=== PATIENT | female | born 1955 | race Caucasian/White ===

== ENCOUNTER 2017-10-04 16:41 | Inpatient (IN) | payer BC ==
[~2017-10-04] VITALS: Ht 165.1 cm; Wt 65.8 kg
--- NOTE | 2017-10-04 16:45 | NUR ---
PT ATUL FROM HOME TO ER BED 11. PER REPORT, HERE FOR FAILURE TO THRIVE. C/O GENERALIZED BODY ACHES AND WEAKNESS. FAMILY AT BEDSIDE STATES POSIBLE FALL 2 DAYS AGO. BRUSING NOTED TO R HIP. GOWNED AND PLACED ON MONITOR. AWAITING MD BRYSON.
--- NOTE | 2017-10-04 17:21 | NUR ---
DR PLASENCIA AT BEDSIDE FOR EVAL.
--- NOTE | 2017-10-04 17:31 | NUR ---
FEEDER ASSOCIATE AT BEDSIDE FOR EVAL.
[2017-10-04 17:39] LABS: BASOPHILS # (AUTO) 0.5 /CMM (0.0-0.2); BASOPHILS % (AUTO) 2.7 % (0.0-2.0); EOSINOPHILS % (AUTO) 0.1 % (0.0-6.0); HEMATOCRIT 45 % (33-45); HEMOGLOBIN 15.9 g/dL (11.5-14.8); LYMPHOCYTES # (AUTO) 0.7 /CMM (0.8-4.8); LYMPHOCYTES % (AUTO) 3.9 % (20.0-44.0); MEAN CORPUSCULAR HEMOGLOBIN 29 PG (26.0-33.0); MEAN CORPUSCULAR HGB CONC 35 g/dl (31.0-36.0); MEAN CORPUSCULAR VOLUME 83 fL (82-100); MONOCYTES # (AUTO) 1.4 /CMM (0.1-1.30); MONOCYTES % (AUTO) 7.5 % (2.0-12.0); NEUTROPHILS # (AUTO) 15.5 /CMM (1.8-8.9); NEUTROPHILS % (AUTO) 85.8 % (43.0-81.0); PLATELET COUNT (AUTO) 249 /CMM (150-450); RDW COEFFICIENT OF VARIATION 14.9 (11.5-15.0); RED BLOOD CELL COUNT(AUTO) 5.43 MIL/uL (4.0-5.2); WHITE BLOOD COUNT (AUTO) 18.1 K/uL (4.3-11.0)
--- NOTE | 2017-10-04 17:46 | NUR ---
PT TO RADIOLOGY FOR HEAD CT SCAN VIA [facility].
[2017-10-04 17:49] LABS: CALCIUM, SERUM 8.9 mg/dL (8.5-10.1); CARBON DIOXIDE 27 mmol/L (21-32); CHLORIDE 98 mmol/L (98-107); CREATININE 2.6 mg/dL (0.6-1.3); GLUCOSE 121 mg/dL (74-106); POTASSIUM 2.9 mmol/L (3.5-5.1); SODIUM SERUM 139 mmol/L (136-145); UREA NITROGEN, BLOOD 61 mg/dL (7-18)
[2017-10-04 17:58] LABS: TROPONIN I 0.327 ng/mL (0.00-0.056)
[2017-10-04 18:05] LABS: ALANINE AMINOTRANSFERASE 43 U/L (12-78); ALBUMIN 3.6 g/dL (3.4-5.0); ALCOHOL, BLOOD < 3 mg/dL (0-0); ALKALINE PHOSPHATASE 61 U/L (46-116); ASPARTATE AMINOTRANSFERASE 86 U/L (15-37); BILIRUBIN,DIRECT 0.4 mg/dL (0.0-0.2); BILIRUBIN,TOTAL 1.3 mg/dL (0.2-1.0); TOTAL PROTEIN, SERUM 7.1 g/dL (6.4-8.2)
[2017-10-04 18:06] LABS: ACETAMINOPHEN < 2 ug/ml (10-30); SALICYLATE 2.3 mg/dL (2.8-20.0)
[2017-10-04 18:31] LABS: APPEARANCE,URINE Cloudy (CLEAR); BILIRUBIN,URINE LARGE (NEGATIVE); BLOOD, URINE Moderate Ery/uL (NEGATIVE); COLOR,URINE Yellow (YELLOW); KETONES,URINE 15 (NEGATIVE); LEUKOCYTE ESTERASE ,URINE Negative (NEGATIVE); NITRITE, URINE Negative (NEGATIVE); PROTEIN,URINE 100 mg/dl (NEGATIVE); UGLUCOSE Negative (NEGATIVE)
[2017-10-04 18:33] LABS: RBC,URINE 21-50 /HPF (0-2)
[2017-10-04 18:34] LABS: BACTERIA,URINE Rare /HPF (None Seen); SQUAMOUS EPITHELIAL CELL,UR Rare /HPF (None Seen); URINE AMORPHOUS URATE Many /HPF (None Seen); WBC,URINE 0-2 /HPF (0-3)
--- NOTE | 2017-10-04 18:54 | NUR ---
RADIOLOGY AT BEDSIDE FOR CHEST XRAY.
[2017-10-04] MEDS ORDERED: CEFTRIAXONE 1GM BAG (ER ONLY) 50 ML IV ONE (19:00)
[2017-10-04] MEDS ORDERED: FLUT1BLS IH (19:04)
[2017-10-04] MEDS ORDERED: ALBU18HF2 IH (19:04)
[2017-10-04] MEDS ORDERED: ENAL20TA PO (19:04)
[2017-10-04] MEDS ORDERED: SERT50TA PO (19:04)
[2017-10-04] MEDS ORDERED: ARIP10TA9 PO (19:04)
[2017-10-04] MEDS ORDERED: ZOLPIDEM TARTRATE 5 MG TABLET PO PRN (19:30)
[2017-10-04] MEDS ORDERED: MAGNESIUM HYDROXIDE 30 ML UDC PO PRN (19:30)
[2017-10-04] MEDS ORDERED: ACETAMINOPHEN 325 MG TABLET PO PRN (19:30)
[2017-10-04] MEDS ORDERED: MAG HYDROX/AL HYDROX/SIMETH 30 ML UDC PO PRN (19:30)
[2017-10-04] MEDS ORDERED: ONDANSETRON HCL/PF 4 MG/2 ML VIAL IVP PRN (19:30)
[2017-10-04] MEDS ORDERED: CEFTRIAXONE 1 G in IV D5W 50 ML IV ONE (19:30)
--- NOTE | 2017-10-04 19:58 | NUR ---
REPORT GIVEN TO GUILLE ESPOSITO. PT AWAITING TRANSFER TO FLOOR.
--- NOTE | 2017-10-04 20:07 | NUR ---
PT TO RADIOLOGY FOR CHEST CT SCAN VIA [facility].
--- NOTE | 2017-10-04 20:12 | NUR ---
DR DERIAN LAMB PER DR PLASENCIA
[2017-10-04 20:19] LABS: CREATINE KINASE MB 16.2 ng/mL (0-3.6)
--- NOTE | 2017-10-04 20:23 | NUR ---
SON MARGOTH LEFT CONTACT # [phone] DAUGHTER KIKO #[phone]
--- NOTE | 2017-10-04 20:38 | NUR ---
DR CHANG PAGED PER DR PLASENCIA
[2017-10-04] MEDS ORDERED: POTASSIUM CL. PREMIX PERIPHER. 50 ML IV ONE (21:00)
[2017-10-04] MEDS ORDERED: ASPIRIN 81 MG TAB.CHEW PO ONE (21:00)
--- NOTE | 2017-10-04 21:25 | NUR ---
REPORT GIVEN TO ED RN. PT AWAITING TRANSFER TO FLOOR.
--- NOTE | 2017-10-04 21:50 | NUR ---
ICU/RN OSTOMY THERE IS A BAG OF MEDICATION THAT WILL GO DOWN TO THE PHARMACY.
[2017-10-04] MEDS: IV NS 0.9% 1,000 ML IV PRN (21:52)
[2017-10-04 22:00] VITALS: BP 114/48
[2017-10-04] MEDS ORDERED: ALBUTEROL FS 2.5 MG/0.5 ML VIAL.NEB NEB PRN (22:00)
[2017-10-04] MEDS ORDERED: IPRATROPIUM NEB FS 0.5 MG/2.5 ML AMPUL.NEB NEB PRN (22:00)
--- NOTE | 2017-10-04 22:00 | NUR ---
ICU/CONVEYOR INSTALLER RECEIVED PT FROM ER, PLACED ON MONITOR. PT ALERT X 4, ON NON REBREATHER MASK DUE TO PNEUMOTHORAX, HYPERVENTILATION. ALSO PT IS SINUS RHYTHM 70'S. PT HAS NO BURROWS, USED BEDPAN. PT ALSO HAS A FEW SKIN ISSUES THAT ARE ADDRESSED ON FLOW SHEET. PT WAS ORT TO CALL LIGHT AND TO ROOM.
[2017-10-04 22:18] VITALS: BP 114/48
[2017-10-04] MEDS ORDERED: POTASSIUM CL. PREMIX PERIPHER. 50 ML ONE (22:19)
--- NOTE | 2017-10-04 22:30 | NUR ---
ICU/SNAPPER ON CHARGE NURSE PLACED CALL TO TUFTING CREELER MD FOR CLARIFICATION OF ORDERS POTASSIUM IS 2.9. THERE IS ORDER FOR 10MEQ OF POTASSIUM TIMES HOW MANY WAS CLARIFIED.
[2017-10-04 23:00] VITALS: BP 121/34
--- NOTE | 2017-10-04 23:15 | NUR ---
ICU/DEPARTMENTAL SECRETARY CALLED BACK SAID ONLY 1 BAG EVEN THOUGH THE POTASSIUM IS 2.9. WILL RECHECK POTASSIUM IN AM. CALL LIGHT WITHIN REACH.
[2017-10-04 23:30] VITALS: BP 108/66
--- NOTE | 2017-10-04 23:59 | NUR ---
ICU/MOTION PICTURE NARRATOR TROPONIN REPEAT WAS 0.200 FROM EARLIER DRAW WAS 0.327. WILL CONTINUE TO MONITOR PT AND LABS. PT DENIES ANY CHEST PAIN AND NO SHORTNESS OF BREATH SEEN AT THI TIME. PT APPEARS COMFORTABLE CALL LIGHT WITHIN REACH.
[2017-10-05] VITALS (25 sets, daily range): BP systolic 91–134; BP diastolic 53–77
--- NOTE | 2017-10-05 00:10 | NUR ---
ICU/ENTERTAINER & COMIC PT COMPLAINED ABOUT PAIN TO THE IV SITE WHERE THE IVPB POTASSIUM IS GOING IN AT. SITE WAS NOTED TO BE VERY RED. APPLIED ICU PACK TO THIS SITE. ALL SITES FLUSH WELL, WITH GOOD BLOOD RETURN. WILL CONTINUE TO MONITOR PT.
--- NOTE | 2017-10-05 05:10 | NUR ---
ICU/EAR NOSE THROAT PHYSICIAN PT HAD PORTABLE CHEST X-RAY DONE AWAIT RESULTS TO SEE IF PNEUMOTHORAX HAS EXPANDED OR IS GETTING BETTER. PT REMAINS ON 15 LITERS NON-REBREATHER MASK AT 15 LITERS. CALL LIGHT WITHIN REACH. NO SOB IS SEEN AT THIS TIME.
[2017-10-05 06:10] LABS: BASOPHILS % (AUTO) 0.3 % (0.0-2.0); HEMATOCRIT 40 % (33-45); HEMOGLOBIN 13.5 g/dL (11.5-14.8); LYMPHOCYTES # (AUTO) 0.6 /CMM (0.8-4.8); LYMPHOCYTES % (AUTO) 6.3 % (20.0-44.0); MEAN CORPUSCULAR HEMOGLOBIN 29 PG (26.0-33.0); MEAN CORPUSCULAR HGB CONC 34 g/dl (31.0-36.0); MEAN CORPUSCULAR VOLUME 86 fL (82-100); MONOCYTES # (AUTO) 0.8 /CMM (0.1-1.30); MONOCYTES % (AUTO) 7.8 % (2.0-12.0); NEUTROPHILS # (AUTO) 8.6 /CMM (1.8-8.9); NEUTROPHILS % (AUTO) 85.6 % (43.0-81.0); PLATELET COUNT (AUTO) 175 /CMM (150-450); RDW COEFFICIENT OF VARIATION 15.6 (11.5-15.0); RED BLOOD CELL COUNT(AUTO) 4.64 MIL/uL (4.0-5.2); WHITE BLOOD COUNT (AUTO) 10.1 K/uL (4.3-11.0)
[2017-10-05 06:25] LABS: CALCIUM, SERUM 8.6 mg/dL (8.5-10.1); CREATININE 1.5 mg/dL (0.6-1.3); MAGNESIUM 2.3 mg/dL (1.8-2.4); PHOSPHORUS 3.9 mg/dL (2.5-4.9); POTASSIUM 3.2 mmol/L (3.5-5.1)
--- NOTE | 2017-10-05 06:50 | NUR ---
ICU/SALES REPRESENTATIVE CONSULTANT BURROWS CATH WAS PLACED IN PT, PT ALSO SITTING UP EATING. SATURATION IS 100%. NO SOB SEEN. CALL LIGHT WITHIN REACH.
[2017-10-05] MEDS: IV NS 0.9% 1,000 ML IV PRN ×3 (07:15→14:52)
--- NOTE | 2017-10-05 07:30 | NUR ---
BURLAP BAG SEWER INITIAL NOTES RECEIVED PATIENT AWAKE IN BED, AOX3, ANXIETY NOTED, ON NON-REBREATHER MASK AT 15 LITERS, SATURATING WELL, NO DISTRESS NOTED, CHEST XRAY SHOWS IMPROVEMENT FROM LAST CHEST XRAY PNEUMOTHORAX IMPROVING AT THIS TIME, SR ON TELE MONITOR, FC DRAINING TO GRAVITY, IV RAC AND L HAND 20G CLEAN AND PATENT, INFUSING NS @ 100 CC/HR, BED IN LOW AND LOCKED POSITION CALL LIGHT WITHIN REACH, WILL CONTINUE TO MONITOR.
--- NOTE | 2017-10-05 08:30 | NUR ---
LICENSED LOAN OFFICER ASSISTANT NOTES PATIENT SEEN BY DR FULLER POTASSIUM REPLACEMENTS ORDERED. FOR 3.2 K LEVEL.
[2017-10-05] MEDS: POTASSIUM CHLORIDE 20 MEQ TAB.PRT.SR PO SCH ×3 (08:42→10:52)
[2017-10-05] MEDS: ASPIRIN 81 MG TAB.CHEW PO SCH (08:42)
[2017-10-05] MEDS: PANTOPRAZOLE 40 MG TABLET.DR PO SCH (08:42)
--- NOTE | 2017-10-05 10:28 | NUR ---
MARINE DESIGN ENGINEER NOTES PATIENT SEEN BY DR ROSE, PSYCH MEDICATIONS CONTINUED, GABAPENTIN ORDERED, GABAPENTIN LISTED A PATIENT ALLERGY, PER PATIENT AND SON PATIENT DOES NOT HAVE THIS ALLERGY PATIENT STATES NO KNOWN ALLERGY, PER PHARMACY OK TO TAKE OUT THE ALLERGY.
[2017-10-05] MEDS ORDERED: SERTRALINE HCL 25 MG TABLET PO SCH (10:30)
[2017-10-05] MEDS: GABAPENTIN 100 MG CAPSULE PO SCH ×2 (10:51→16:23)
[2017-10-05] MEDS: ARIPIPRAZOLE 5 MG TABLET PO SCH ×2 (10:52→16:22)
--- NOTE | 2017-10-05 11:00 | NUR ---
POLICE COMMUNICATIONS DISPATCHER NOTES PATIENT SEEN BY DR RIVERA NO CHEST TUBE NEEDED AT THIS TIME, PATIENT TO BE MONITORED AND CHEST TUBE TO BE PLACED BY DR PARIKH IF NEEDED.
[2017-10-05] MEDS ORDERED: LORAZEPAM INJ 2 MG/ML VIAL IV PRN (13:00)
[2017-10-05] MEDS: TRAMADOL HCL 50 MG TABLET PO SCH (14:29)
[2017-10-05] MEDS ORDERED: GABAPENTIN 100 MG CAPSULE PO SCH (17:00)
--- NOTE | 2017-10-05 18:53 | NUR ---
MASH TUB COOKER OPERATOR END NOTES PATIENT RESTING IN BED, SON AT BEDSIDE, NO SIGNS OF DISTRESS, WILL ENDORSE TO FAMILY ADVOCATE FOR CONTINUITY OF CARE.
[2017-10-05] MEDS: IV NS 0.9% 1,000 ML IV SCH (21:28)
[2017-10-05] MEDS: ATORVASTATIN 10 MG TABLET PO SCH (21:57)
[2017-10-05] MEDS: MIRTAZAPINE 15 MG TABLET PO SCH (21:57)
[2017-10-06] VITALS (24 sets, daily range): BP systolic 106–141; BP diastolic 50–79
[2017-10-06] MEDS: TRAMADOL HCL 50 MG TABLET PO SCH ×2 (01:15→12:45)
[2017-10-06 05:12] LABS: BASOPHILS % (AUTO) 0.2 % (0.0-2.0); EOSINOPHILS % (AUTO) 0.6 % (0.0-6.0); HEMATOCRIT 35 % (33-45); HEMOGLOBIN 11.9 g/dL (11.5-14.8); LYMPHOCYTES # (AUTO) 0.6 /CMM (0.8-4.8); MEAN CORPUSCULAR HEMOGLOBIN 29 PG (26.0-33.0); MEAN CORPUSCULAR HGB CONC 34 g/dl (31.0-36.0); MEAN CORPUSCULAR VOLUME 86 fL (82-100); MONOCYTES # (AUTO) 0.6 /CMM (0.1-1.30); MONOCYTES % (AUTO) 10.6 % (2.0-12.0); NEUTROPHILS # (AUTO) 4.4 /CMM (1.8-8.9); NEUTROPHILS % (AUTO) 78.6 % (43.0-81.0); PLATELET COUNT (AUTO) 121 /CMM (150-450); RDW COEFFICIENT OF VARIATION 15.4 (11.5-15.0); RED BLOOD CELL COUNT(AUTO) 4.08 MIL/uL (4.0-5.2); WHITE BLOOD COUNT (AUTO) 5.7 K/uL (4.3-11.0)
[2017-10-06 05:21] LABS: CREATININE 0.8 mg/dL (0.6-1.3); POTASSIUM 3.3 mmol/L (3.5-5.1)
[2017-10-06 05:25] LABS: MAGNESIUM 1.9 mg/dL (1.8-2.4); PHOSPHORUS 2.1 mg/dL (2.5-4.9)
--- NOTE | 2017-10-06 08:00 | NUR ---
AWAKE, ALERT, ON 100 % NRBM. NO DISTRESS. AFEBRILE. CXR WITH IMPROVED RIGHT LUNG PNEUMOTHORAX. FC INFUSING WELL.
[2017-10-06] MEDS: POTASSIUM CHLORIDE 20 MEQ TAB.PRT.SR PO SCH ×3 (08:09→10:25)
[2017-10-06] MEDS: GABAPENTIN 100 MG CAPSULE PO SCH ×3 (08:09→17:15)
[2017-10-06] MEDS: ARIPIPRAZOLE 5 MG TABLET PO SCH ×3 (08:09→17:15)
[2017-10-06] MEDS: ASPIRIN 81 MG TAB.CHEW PO SCH (08:10)
[2017-10-06] MEDS: PANTOPRAZOLE 40 MG TABLET.DR PO SCH (08:10)
[2017-10-06] MEDS ORDERED: SERTRALINE HCL 25 MG TABLET PO SCH (09:00)
[2017-10-06] MEDS: IV NS 0.9% 1,000 ML IV SCH (09:15)
[2017-10-06] MEDS ORDERED: IV NS 0.9% 1,000 ML IV PRN (09:27)
--- NOTE | 2017-10-06 10:00 | NUR ---
DR. PETERS FOR PULMO FF UP- KEEP PATIENT IN ICU PER MD. OOB WITH PT AT BEDSIDE-TOLERATED WELL.
[2017-10-06] MEDS ORDERED: TEMAZEPAM 15 MG CAPSULE PO PRN (11:00)
--- NOTE | 2017-10-06 12:00 | NUR ---
ON 4L N/C DURING MEALS. NO SOB. SPO>94 %.
[2017-10-06] MEDS ORDERED: K PHOS NEUTRAL 250 MG TABLET PO ONE (12:30)
[2017-10-06] MEDS: FLUTICASONE/VILANTEROL 1 EACH BLST.W.DEV IH SCH (14:34)
[2017-10-06] MEDS: DOCUSATE SODIUM 100 MG CAPSULE PO SCH (17:15)
--- NOTE | 2017-10-06 18:50 | NUR ---
NO CHANGE IN CONDITION. REMIANS ON 100% NRBM. NO SOB PRESENTED. UO IMPROVING. AFEBRILE.
--- NOTE | 2017-10-06 19:30 | NUR ---
COAT PADDER INITIAL NOTES RECEIVED PATIENT AWAKE, ALERT, AND ORIENTED. ABLE TO MAKE NEEDS KNOWN. DENIES SOB AT THIS TIME. ON [id number] VIA NON-REBREATHER. DENIES PAIN OR DISCOMFORT. SKIN WARM AND DRY TO TOUCH. WITH F/C PATENT AND INTACT, DRAINING BY GRAVITY. ON TELE MONITOR SR 81. HOB ELEVATED. SIDE RAILS UP AND LOCKED. BED KEPT AT LOWEST POSITION. CALL LIGHT KEPT WITHIN EASY REACH. FALL PRECAUTIONS OBSERVED. WILL CONTINUE TO MONITOR.
[2017-10-06] MEDS: ATORVASTATIN 10 MG TABLET PO SCH (21:04)
[2017-10-06] MEDS: MIRTAZAPINE 15 MG TABLET PO SCH (21:05)
[2017-10-07] VITALS (16 sets, daily range): BP systolic 100–158; BP diastolic 57–85
[2017-10-07] MEDS: TRAMADOL HCL 50 MG TABLET PO SCH ×2 (01:00→12:41)
--- NOTE | 2017-10-07 01:18 | NUR ---
NON-ADMIN ULTRAM, PATIENT SLEEPING COMFORTABLY. NO S/S OF PAIN OR DISCOMFORT. WILL CONTINUE TO MONITOR.
[2017-10-07] MEDS: LORAZEPAM INJ 2 MG/ML VIAL IV PRN ×3 (02:37→21:46)
--- NOTE | 2017-10-07 02:40 | NUR ---
RIGHT OF WAY CLEARER NOTES PATIENT EXPRESSED SHE'S FEELING ANXIOUS. DENIES PAIN OR DISCOMFORT. ASKED PATIENT THE CAUSE OF HER ANXIETY, STATES SHE'S SCARED ABOUT HER BILLS AND OTHER THINGS AT HOME THAT AREN'T BEING TAKEN CARE OF. PROVIDED REASSURANCE. PATIENT STILL ANXIOUS. PRN ATIVAN GIVEN ORDERED. WILL CONTINUE TO MONITOR.
[2017-10-07 05:27] LABS: BASOPHILS % (AUTO) 0.3 % (0.0-2.0); EOSINOPHILS # (AUTO) 0.1 /CMM (0.0-0.7); EOSINOPHILS % (AUTO) 1.8 % (0.0-6.0); HEMATOCRIT 36 % (33-45); HEMOGLOBIN 12.1 g/dL (11.5-14.8); LYMPHOCYTES # (AUTO) 0.6 /CMM (0.8-4.8); LYMPHOCYTES % (AUTO) 11.3 % (20.0-44.0); MEAN CORPUSCULAR HEMOGLOBIN 29 PG (26.0-33.0); MEAN CORPUSCULAR HGB CONC 34 g/dl (31.0-36.0); MEAN CORPUSCULAR VOLUME 86 fL (82-100); MONOCYTES # (AUTO) 0.4 /CMM (0.1-1.30); NEUTROPHILS # (AUTO) 4.3 /CMM (1.8-8.9); NEUTROPHILS % (AUTO) 78.6 % (43.0-81.0); PLATELET COUNT (AUTO) 118 /CMM (150-450); RDW COEFFICIENT OF VARIATION 15.5 (11.5-15.0); RED BLOOD CELL COUNT(AUTO) 4.15 MIL/uL (4.0-5.2); WHITE BLOOD COUNT (AUTO) 5.5 K/uL (4.3-11.0)
[2017-10-07 05:40] LABS: CALCIUM, SERUM 7.8 mg/dL (8.5-10.1); CREATININE 0.8 mg/dL (0.6-1.3); POTASSIUM 3.7 mmol/L (3.5-5.1)
[2017-10-07 05:43] LABS: MAGNESIUM 1.7 mg/dL (1.8-2.4); PHOSPHORUS 2.4 mg/dL (2.5-4.9)
--- NOTE | 2017-10-07 06:12 | NUR ---
COOLER TENDER CLOSING NOTES NO SIGNIFICANT CHANGES OVERNIGHT. DENIES PAIN OR DISCOMFORT. DENIES SOB. ALERT AND ORIENTED, ALL NEEDS ANTICIPATED AND MET. NO RESPIRATORY DISTRESS NOTED. ON NON-REBREATHER 15LPM. F/C PATENT AND INTACT, DRAINING BY GRAVITY. KEPT CLEAN AND DRY. TURNED AND REPOSITIONED Q2 AND PRN. SIDE RAILS UP AND LOCKED. BED KEPT AT LOWEST POSITION. CALL LIGHT KEPT WITHIN EASY REACH. WILL ENDORSE CONTINUITY OF CARE TO AM NURSE.
--- NOTE | 2017-10-07 07:54 | NUR ---
RN INITIAL NOTE; RECEIVED PATIENT AWAKE, AND ORIENTED. ABLE TO MAKE NEEDS KNOWN. DENIES SOB AT THIS TIME. ON [id number] VIA NON-REBREATHER. TELE MONITOR SHOWS SR 80. SKIN WARM AND DRY TO TOUCH. WITH F/C PATENT AND INTACT AND DRAINING AMILCAR COLORED URINE . HOB ELEVATED. SIDE RAILS UP AND LOCKED. BED AT LOWEST AND LOCKED POSITION. CALL LIGHT WITHIN EASY REACH. ON FALL PRECAUTIONS . BED ALARM ON , WILL CONTINUE TO MONITOR.
[2017-10-07] MEDS: PANTOPRAZOLE 40 MG TABLET.DR PO SCH (08:11)
[2017-10-07] MEDS ORDERED: Magnesium 1GM/D5W 100ML PREMIX PIGGYBACK IV ONE (10:00)
[2017-10-07] MEDS: FLUTICASONE/VILANTEROL 1 EACH BLST.W.DEV IH SCH (10:15)
[2017-10-07] MEDS: GABAPENTIN 100 MG CAPSULE PO SCH ×3 (10:15→17:08)
[2017-10-07] MEDS: ARIPIPRAZOLE 5 MG TABLET PO SCH ×3 (10:15→17:08)
[2017-10-07] MEDS: SERTRALINE HCL 25 MG TABLET PO SCH (10:16)
[2017-10-07] MEDS: ASPIRIN 81 MG TAB.CHEW PO SCH (10:16)
[2017-10-07] MEDS: DOCUSATE SODIUM 100 MG CAPSULE PO SCH ×2 (10:16→17:08)
--- NOTE | 2017-10-07 10:44 | NUR ---
RN NOTE; REPORT GIVEN TO DMITRIY FROM TELE METRY, PATIENT WITH NO ANY DISTRESS AT THIS TIME
--- NOTE | 2017-10-07 11:45 | NUR ---
PATIENT TRANSFERRED TO TELE FLOOR ROOM 311-1 , ALL BELONGINGS GIVEN TO THE PATIENT, PATIENT WITHOUT ANY DISTRESS , REPORT GIVEN TO CATE IZAGUIRRE .
[2017-10-07] MEDS ORDERED: K PHOS NEUTRAL 250 MG TABLET PO ONE (12:00)
--- NOTE | 2017-10-07 19:45 | NUR ---
RN OPENING NOTES RECEIVED REPORT FROM RIPFT RNDMITRIY. FOUND Pt ASLEEP, RESTING IN BED, EASILY AWAKENED. EQUAL CHEST RISE AND FALL. NO S/S OF ACUTE DISTRESS OR SOB NOTED. Pt IS A/OX3, VERBAL, ABLE TO MAKE NEEDS KNOWN. BURROWS CATHETER IN PLACE. IV ACCESS ON LWRIST #20G. SAFETY MEASURES IN PLACE. BED LOW, LOCKED, HOB ELEVATED, SIDE RAILS UP, CALL LIGHT AND BEDSIDE TABLE WITHIN REACH. WILL CONTINUE TO MONITOR Pt THROUGHOUT THE NIGHT FOR SAFETY.
--- NOTE | 2017-10-07 19:46 | NUR ---
CHANGE OF SHIFT REPORT PT RESTING COMFORTABLY IN BED. NO S/S OR C/O PAIN OR DISTRESS NOTED. SIDE RAILS UP X2, CALL LIGHT LEFT WITHIN REACH. PT KEPT CLEAN, DRY, AND COMFORTABLE. NO SIGNIFICANT CHANGES SINCE TRANSFER. REPORT GIVEN TO KEVIN RN
[2017-10-07] MEDS: ATORVASTATIN 10 MG TABLET PO SCH (21:35)
[2017-10-07] MEDS: MIRTAZAPINE 15 MG TABLET PO SCH (21:35)
[2017-10-08] MEDS: TRAMADOL HCL 50 MG TABLET PO SCH ×2 (01:00→12:23)
--- NOTE | 2017-10-08 06:30 | NUR ---
RN CLOSING NOTES NO SIGNIFICANT CHANGES IN Pt's CONDITION. Pt REMAINS IN STABLE CONDITION AT THIS TIME. NO S/S OF ACUTE DISTRESS OR SOB NOTED DURING THE NIGHT. Pt REFUSED TO BE GIVEN A BED BATH. ALL OTHER NEEDS ATTENDED TO. SAFETY MEASURES IN PLACE. WILL ENDORSE TO DAYSHIFT RN FOR Pt's DENNYS.
--- NOTE | 2017-10-08 07:30 | NUR ---
RN OPEN NOTES RECEIVED REPORT FROM FLIGHT ENGINEER MANAGER NURSE. PATIENT IS IN BED. ALERT AND ORIENTED X4. BED IN LOW POSITION, LOCKED AND TWO SIDE RAILS ARE UP. CALL LIGHT WITHIN REACH FOR SAFETY. NO S/S OF DISTRESS. WILL CONTINUE TO MONITOR AND ASSESS PATIENT
[2017-10-08 08:00] VITALS: BP 119/70
[2017-10-08] MEDS: GABAPENTIN 100 MG CAPSULE PO SCH ×3 (08:55→16:42)
[2017-10-08] MEDS: DOCUSATE SODIUM 100 MG CAPSULE PO SCH ×2 (08:55→16:42)
[2017-10-08] MEDS: ASPIRIN 81 MG TAB.CHEW PO SCH (08:55)
[2017-10-08] MEDS: SERTRALINE HCL 25 MG TABLET PO SCH (08:55)
[2017-10-08] MEDS: ARIPIPRAZOLE 5 MG TABLET PO SCH ×3 (08:56→16:42)
[2017-10-08] MEDS: FLUTICASONE/VILANTEROL 1 EACH BLST.W.DEV IH SCH (08:56)
[2017-10-08] MEDS: PANTOPRAZOLE 40 MG TABLET.DR PO SCH (08:56)
[2017-10-08 16:00] VITALS: BP 125/75
[2017-10-08] MEDS ORDERED: Magnesium 1GM/D5W 100ML PREMIX PIGGYBACK IV ONE (17:00)
--- NOTE | 2017-10-08 18:29 | NUR ---
RN CLOSING NOTES PATIENT IS IN BED. AWAKE, ALERT AND ORIENTED TO SELF, PLACE AND TIME. PERIOD OF CONFUSION NOTED. NO SIGNS AND SYMPTOMS OF DISTRESS. PENDING CASE MANAGEMENT CONSULT. BED IN LOW POSITION, LOCKED AND TWO SIDE RAILS ARE UP. CALL LIGHT WITHIN REACH FOR SAFETY. PATIENT KEPT SAFE, DRY AND CLEAN. ALL NURSING CARE ANTICIPATED AND ATTENDED FOR. WILL ENDORSE TO SILVERWARE WASHER NURSE.
--- NOTE | 2017-10-08 19:30 | NUR ---
MS RN NOTE: PATIENT RESTING IN BED, NO ACUTE DISTRESS NOTED. BREATHING EVEN AND UNLABORED, NO SOB NOTED. OXYGEN IN PLACE, VIA NC AT 2 LPM WITH O2 SAT AT 97%. IV TO RFA IN PLACE. BURROWS CATHETER IN PLACE, EMPTY AT THIS TIME. BED LOCKED AND IN LOWEST POSITION, CALL LIGHT IN REACH. WILL CONTINUE TO MONITOR.
[2017-10-08 20:00] VITALS: BP 115/66
[2017-10-08] MEDS: ATORVASTATIN 10 MG TABLET PO SCH (21:22)
[2017-10-08] MEDS: IBUPROFEN 600 MG TABLET PO PRN (21:22)
[2017-10-08] MEDS: MIRTAZAPINE 15 MG TABLET PO SCH (21:22)
--- NOTE | 2017-10-08 21:30 | NUR ---
MS RN NOTE: PATIENT COMPLAINS OF PAIN 3/10 TO BACK, MOTRIN 600MG ORAL GIVEN PER MD ORDER. WILL CONTINUE TO MONITOR.
[2017-10-09] MEDS: TRAMADOL HCL 50 MG TABLET PO SCH ×2 (00:41→13:20)
--- NOTE | 2017-10-09 06:05 | NUR ---
MS RN NOTE: PATIENT RESTING IN BED, NO ACUTE DISTRESS NOTED. BREATHING EVEN AND UNLABORED, NO SOB NOTED. IV TO RFA IN PLACE. BURROWS CATHETER IN PLACE. BED LOCKED AND IN LOWEST POSITION, CALL LIGHT IN REACH. WILL ENDORSE TO DAY NURSE TO CONTINUE WITH PLAN OF CARE.
[2017-10-09 07:37] LABS: BASOPHILS % (AUTO) 0.3 % (0.0-2.0); EOSINOPHILS # (AUTO) 0.1 /CMM (0.0-0.7); HEMATOCRIT 36 % (33-45); HEMOGLOBIN 12.4 g/dL (11.5-14.8); LYMPHOCYTES # (AUTO) 0.6 /CMM (0.8-4.8); LYMPHOCYTES % (AUTO) 13.1 % (20.0-44.0); MEAN CORPUSCULAR HEMOGLOBIN 29 PG (26.0-33.0); MEAN CORPUSCULAR HGB CONC 34 g/dl (31.0-36.0); MEAN CORPUSCULAR VOLUME 86 fL (82-100); MONOCYTES # (AUTO) 0.4 /CMM (0.1-1.30); MONOCYTES % (AUTO) 9.1 % (2.0-12.0); NEUTROPHILS # (AUTO) 3.6 /CMM (1.8-8.9); NEUTROPHILS % (AUTO) 75.5 % (43.0-81.0); PLATELET COUNT (AUTO) 128 /CMM (150-450); RDW COEFFICIENT OF VARIATION 15.3 (11.5-15.0); RED BLOOD CELL COUNT(AUTO) 4.24 MIL/uL (4.0-5.2); WHITE BLOOD COUNT (AUTO) 4.8 K/uL (4.3-11.0)
[2017-10-09 08:00] VITALS: BP 136/72
[2017-10-09] MEDS: ARIPIPRAZOLE 5 MG TABLET PO SCH ×3 (08:34→17:01)
[2017-10-09] MEDS: GABAPENTIN 100 MG CAPSULE PO SCH ×3 (08:34→17:02)
[2017-10-09] MEDS: DOCUSATE SODIUM 100 MG CAPSULE PO SCH ×2 (08:34→17:02)
[2017-10-09] MEDS: SERTRALINE HCL 25 MG TABLET PO SCH (08:35)
[2017-10-09] MEDS: ASPIRIN 81 MG TAB.CHEW PO SCH (08:35)
[2017-10-09] MEDS: PANTOPRAZOLE 40 MG TABLET.DR PO SCH (08:35)
[2017-10-09] MEDS: FLUTICASONE/VILANTEROL 1 EACH BLST.W.DEV IH SCH (08:39)
--- NOTE | 2017-10-09 08:40 | NUR ---
MS RN NOTES PATIENT IS SITTING UP IN THE BED, EATING BREAKFAST. A/O X4, HARD OF HEARING. BURROWS CATH INTACT DRAINING TO GRAVITY, DENIES ANY BLADDER DISCOMFORT. MAINTAIN FALL PRECAUTION. WILL CONT TO MONITOR.
--- NOTE | 2017-10-09 09:36 | NUR ---
BURROWS CATH REMOVED ORDERED, OBTAINED 200ML URINE. WILL MONITOR FOR URINARY RETENTION.
[2017-10-09 09:46] LABS: ALBUMIN 2.5 g/dL (3.4-5.0); BILIRUBIN,TOTAL 0.5 mg/dL (0.2-1.0); CALCIUM, SERUM 8.2 mg/dL (8.5-10.1); CREATININE 0.7 mg/dL (0.6-1.3); MAGNESIUM 1.9 mg/dL (1.8-2.4); PHOSPHORUS 2.5 mg/dL (2.5-4.9); POTASSIUM 3.7 mmol/L (3.5-5.1); TOTAL PROTEIN, SERUM 5.7 g/dL (6.4-8.2)
[2017-10-09 16:00] VITALS: BP 129/70
--- NOTE | 2017-10-09 18:19 | NUR ---
MS RN PATIENT IS A/O X4. VOIDED POST BURROWS CATH D/C'D. NO C/O BLADDER DISCOMFORT. AMBULATES WITH PT THERAPY TODAY, TOLERATING WELL, ON PAIN MANAGEMENT, EFFECTIVE. PATIENT LIVES ALONE, CM FOR PLACEMENT. MAINTAIN SAFETY PRECAUTION, CALL LIGHT WITHIN REACH. WILL ENDORSE TO ONCOMING SHIFT RN.
--- NOTE | 2017-10-09 19:30 | NUR ---
MS RN NOTE: PATIENT RESTING IN BED, NO ACUTE DISTRESS NOTED. BREATHING EVEN AND UNLABORED, NO SOB NOTED. IV TO LFA IN PLACE. BED LOCKED AND IN LOWEST POSITION, CALL LIGHT IN REACH. WILL CONTINUE TO MONITOR.
[2017-10-09 20:00] VITALS: BP 113/64
[2017-10-09] MEDS: ATORVASTATIN 10 MG TABLET PO SCH (21:51)
[2017-10-09] MEDS: MIRTAZAPINE 15 MG TABLET PO SCH (21:51)
[2017-10-09] MEDS: IBUPROFEN 600 MG TABLET PO PRN (21:51)
[2017-10-09] MEDS: LORAZEPAM INJ 2 MG/ML VIAL IV PRN (23:54)
--- NOTE | 2017-10-10 00:15 | NUR ---
MS RN NOTE: PATIENT ANXIOUS AND REQUESTING FOR MEDICATION. ATIVAN 1MG IV GIVEN PER MD ORDER. INFORMED PATIENT THAT SHE HAD ULTRAM SCHEDULED AT 0100. PATIENT SAID NOT TO WAKE HER IF SHE IS ALREADY SLEEPING FROM THE ATIVAN. WILL CONTINUE TO MONITOR.
[2017-10-10] MEDS: TRAMADOL HCL 50 MG TABLET PO SCH ×2 (01:30→12:30)
--- NOTE | 2017-10-10 02:00 | NUR ---
MS RN NOTE: PATIENT SLEEPING AND ULTRAM NOT ADMINISTER PER PATIENT REQUEST. WILL CONTINUE TO MONITOR.
--- NOTE | 2017-10-10 06:15 | NUR ---
MS RN NOTE: PATIENT RESTING IN BED, NO ACUTE DISTRESS NOTED. BREATHING EVEN AND UNLABORED, NO SOB NOTED. IV TO LFA IN PLACE. BED LOCKED AND IN LOWEST POSITION, CALL LIGHT IN REACH. WILL ENDORSE TO DAY NURSE TO CONTINUE WITH PLAN OF CARE.
[2017-10-10 08:00] VITALS: BP 121/70
[2017-10-10] MEDS: GABAPENTIN 100 MG CAPSULE PO SCH ×2 (08:31→12:27)
[2017-10-10] MEDS: DOCUSATE SODIUM 100 MG CAPSULE PO SCH (08:31)
[2017-10-10] MEDS: SERTRALINE HCL 25 MG TABLET PO SCH (08:32)
[2017-10-10] MEDS: PANTOPRAZOLE 40 MG TABLET.DR PO SCH (08:32)
[2017-10-10] MEDS: ARIPIPRAZOLE 5 MG TABLET PO SCH ×2 (08:32→12:27)
[2017-10-10] MEDS: ASPIRIN 81 MG TAB.CHEW PO SCH (08:32)
[2017-10-10] MEDS: FLUTICASONE/VILANTEROL 1 EACH BLST.W.DEV IH SCH (08:36)
--- NOTE | 2017-10-10 08:37 | NUR ---
MS RN NOTES PATIENT IS SITTING UP IN THE BED, EATING BREAKFAST, GOOD APPETITE. A/O X4, HARD OF HEARING. ASSISTED TO THE BATHROOM, HAD BOWEL MOVEMENT X1, SOFT SMALL AMT, BROWN COLOR. MAINTAIN FALL PRECAUTION. WILL CONT TO MONITOR.
[2017-10-10 16:00] VITALS: BP 117/69
--- NOTE | 2017-10-10 16:59 | NUR ---
MS RN DISCHARGED PATIENT HAS BEEN CLEARED FOR DISCHARGE TO SNF. VS REMAINS STABLE. SKIN INTACT, AMBULATES WITH WALKER. IVC REMOVED IN LFA, GAUZED APPLIED, NO BLEEDING NOTED. DISCHARGE INSTRUCTION GIVEN TO THE PATIENT, VERBALIZED UNDERSTANDING. CALLED [facility]. SPOKE TO CATE ARRIAGA FOR REPORT. BELONGINGS CHECKED AND SEND WITH THE PATIENT UPON DC. PATIENT LEFT HOSP IN STABLE CONDITION VIA AMBULANCE.
== END 2017-10-10 16:50 | DRG 720 ==
LOC: ER 16:42 → UNDOADMIN 20:35 → TELE 20:35 → ICU 20:48 → UNDOADMIN 20:48 → ICU 20:53 → TELE 10-07 11:28 → MED 10-08 12:11
PROVIDERS: ADMIT Nurse Practitioner Acute Care; ATTEND Nurse Practitioner Acute Care
DX: A41.9 Sepsis, unspecified organism (principal); I21.4 Non-ST elevation (NSTEMI) myocardial infarction; N17.0 Acute kidney failure with tubular necrosis; S27.0XXA Traumatic pneumothorax, initial encounter; E87.2 Acidosis; F11.20 Opioid dependence, uncomplicated; I50.32 Chronic diastolic (congestive) heart failure; I11.0 Hypertensive heart disease with heart failure; M62.82 Rhabdomyolysis; E83.42 Hypomagnesemia; E83.39 Other disorders of phosphorus metabolism; E78.5 Hyperlipidemia, unspecified; E86.0 Dehydration; E87.6 Hypokalemia; J45.909 Unspecified asthma, uncomplicated; Z79.51 Long term (current) use of inhaled steroids; E86.9 Volume depletion, unspecified; F41.9 Anxiety disorder, unspecified; W18.30XA Fall on same level, unspecified, initial encounter; Z91.81 History of falling; Y93.9 Activity, unspecified; Y92.009 Unspecified place in unspecified non-institutional (private) residence as the place of occurrence of the external cause; F33.2 Major depressive disorder, recurrent severe without psychotic features; F41.0 Panic disorder [episodic paroxysmal anxiety]; J98.11 Atelectasis; R29.6 Repeated falls; S40.021A Contusion of right upper arm, initial encounter; S70.01XA Contusion of right hip, initial encounter
CPT/HCPCS: 36415; 70450-TC; 71045-TC; 71250-TC; 80048-TC; 80053-TC; 80061-TC; 80076-TC; 80305; 81000-TC; 82103; 82550-TC; 82553-TC; 83605-TC; 83735-TC; 84100-TC; 84484-TC; 85025-TC; 87040-TC; 87081-TC; 87086-TC; 93307-TC; 94799-TC; 97110-TC; 97116-TC; 97530-TC; A4606; G0480; J2060; J3475; J3480; J7030; Z7610